=== PATIENT | female | born 1990 | race Caucasian/White ===

== ENCOUNTER 2025-01-03 14:27 | Emergency (ER) | payer OTHER ==
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
[2025-01-03 14:53] VITALS: TEMP 98.1
--- NOTE | 2025-01-03 15:29 | XR ---
EXAMINATION TYPE: XR ribs RT w pa chest xray DATE OF EXAM: 01/03/2025 3:20 PM COMPARISON: None CLINICAL INDICATION: Female, 34 years old with history of pain, right side swelling; PHH, pain TECHNIQUE: 5 views FINDINGS: Heart normal size. Aorta and pulmonary vasculature within normal limits. Small calcified granuloma is noted at the periphery of the right lower lung. No consolidation or pleural effusion. No displaced right rib fracture seen. IMPRESSION: No acute cardiopulmonary process. A benign calcified granuloma at the right lung base. No displaced r ight rib fracture. [facility], Workstation: [facility], 01/03/2025 3:26 PM
[2025-01-03 17:59] VITALS: BP 137/89; PULSE 84; RESP 16
[2025-01-03] MEDS: DEXAMETHASONE SOD PHOSPHATE 10 MG/ML 1 ML VIAL IM STA (18:21)
== END 2025-01-03 17:57 | disposition home or self-care (01) ==
LOC: EC 14:27
DX: S20.211A Contusion of right front wall of thorax, initial encounter (principal); Z91.041 Radiographic dye allergy status; X58.XXXA Exposure to other specified factors, initial encounter
CPT/HCPCS: 71101; 99283; 96372; J1100